=== PATIENT | male | born 1985 | race Caucasian/White ===

== ENCOUNTER 2019-12-01 12:06 | Emergency (ER) | payer BC ==
[2019-12-01] MEDS ORDERED: CYCLOBENZAPRINE 10 MG TABLET PO STA (15:18)
[2019-12-01] MEDS ORDERED: HYDROcod/ACETAM 5/325 MG TABLET PO STA (15:18)
--- NOTE | 2019-12-01 15:20 | ED Physician Documentation ---
PD HPI BACK PAIN - Stated complaint Stated Complaint: BACK PX - Chief complaint Chief Complaint: Back Pain - History obtained from History obtained from: Patient (For a little under 2 weeks he has been having low back pain, occasionally radiating into mostly the right leg. He also complains of "sore, not "painful hemorrhoids. He has been taking ibuprofen which was helpful but then stopped being helpful. No saddle anesthesia, no fevers. No IV drug use.) Review of Systems Constitutional: denies: Fever, Chills Cardiac: denies: Chest pain / pressure, Palpitations Respiratory: denies: Dyspnea, Cough GI: denies: Abdominal Pain PD PAST MEDICAL HISTORY - Past Medical History Past Medical History: No - Past Surgical History Past Surgical History: No - Present Medications Home Medications: Ambulatory Orders Medication Instructions Recorded Confirmed Cyclobenzaprine [Flexeril] 10 mg PO TID PRN #20 tablet 12/01/19 Dextrin [Fiber] 350 gm PO DAILY 12/01/19 12/01/19 Hydrocodone/Acetaminophen 1 - 2 each PO Q6H PRN #14 tablet 12/01/19 [Hydrocodon-Acetaminophen 5-325] Hydrocortisone Acetate [Anucort-Hc] 25 mg RC QID #20 supp.rect 12/01/19 Multivitamin [Multiple Vitamins] 1 tab PO DAILY 12/01/19 12/01/19 - Allergies Allergies/Adverse Reactions: Allergies Allergy/AdvReac Type Severity Reaction Status Date / Time No Known Drug Allergies Allergy Verified 12/01/19 12:16 - Social History Does the pt smoke?: No Smoking Status: Never smoker Does the pt drink ETOH?: No Does the pt have substance abuse?: No - Immunizations Immunizations are current?: Yes - POLST Patient has POLST: No PD ED PE NORMAL - Vitals Vital signs reviewed: Yes - General General: Alert and oriented X 3, No acute distress - Back Back: Other (He winces with motion but is comfortable at rest, no midline spinal tenderness. The patient has equal and normal Achilles and patellar reflexes bilaterally. Normal sensation in all areas of the legs. Patient denies saddle anesthesia. Normal strength in flexion-extension at the ankles, knees, and flexion of the hips.) - Neuro Neuro: Alert and oriented X 3, Normal speech Results - Vitals Vitals: Vital Signs - 24 hr 12/01/19 12/01/19 12:13 15:28 Temperature 36.5 C 36.5 C Heart Rate 83 82 Respiratory 18 16 Rate Blood Pressure 128/76 126/78 O2 Saturation 99 100 Oxygen O2 Source Room air PD MEDICAL DECISION MAKING - ED course ED course: This patient has seemingly uncomplicated musculoskeletal back pain. The patient has no "red flags." Specifically denies IV drug use, fevers, incontinence, saddle anesthesia. Spinal epidural abscess was considered, given that the patient has no fever, is not diabetic, has no spinal tenderness, does not use IV drugs, and has no bilateral neurologic symptoms, the diagnosis of spinal epidural abscess is considered exceedingly unlikely. Departure - Departure Disposition: Home, Self Care Clinical Impression: Back pain Qualifiers: Back pain location: low back pain Chronicity: acute Back pain laterality: midline Sciatica presence: without sciatica Qualified Code(s): M54.5 - Low back pain Condition: Good Record reviewed to determine appropriate education?: Yes Instructions: ED Neck Back Pain General Prescriptions: Cyclobenzaprine [Flexeril] 10 mg PO TID PRN #20 tablet PRN Reason: Spasms Hydrocodone/Acetaminophen [Hydrocodon-Acetaminophen 5-325] 1 - 2 each PO Q6H PRN #14 tablet PRN Reason: pain Hydrocortisone Acetate [Anucort-Hc] 25 mg RC QID #20 supp.rect Comments: Follow-up with your doctor next week as scheduled, return for new or worsening symptoms. Your physician may want to refer you out for physical therapy which I think would be appropriate. Discharge Date/Time: 12/01/19 15:28
[2019-12-01 15:29] VITALS: BP 126/78
== END 2019-12-01 15:28 | disposition home or self-care (01) ==
LOC: ED 12:06
DX: M54.5 Low back pain (principal)
CPT/HCPCS: 99283; A9270

== ENCOUNTER 2019-12-05 08:00 | Outpatient (CLI) | payer BC ==
--- NOTE | 2019-12-05 15:30 | XRAY Report ---
Reason: CHRONIC LOW BACK PAIN Procedure Date: 12/05/2019 Accession Number: [id number] / [id number] Procedure: WCP - Lumbar Spine 2 View CPT Code: Final Report FULL RESULT: PROCEDURE: Lumbar Spine 2 View INDICATIONS: CHRONIC LOW BACK PAIN TECHNIQUE: views of the lumbar spine were acquired. COMPARISON: None. FINDINGS: Bones: 5 [id number] vertebrae are present. There is normal bony alignment. No vertebral body compression fractures. No suspicious bony lesions. Mild endplate osteophyte formation throughout the mid and lower lumbar spine. Soft tissues: Overlying bowel gas pattern is normal. No suspicious soft tissue calcifications. IMPRESSION: 1. Mid/lower lumbar degenerative disc disease, which could be further assessed with MRI, if clinically indicated. 2. No acute fracture. No osseous lesion. If symptoms and/or clinical suspicion for pathology continue, further assessment with repeat plain films, or advanced imaging (e.g., CT, MRI, or bone scan) is recommended for further assessment. Reviewed by: Alexandria Case MD on 12/05/2019 3:26 PM PDT Approved by: Alexandria Case MD on 12/05/2019 3:26 PM PDT Station ID: [id number]
== END 2019-12-05 23:59 | disposition home or self-care (01) ==
LOC: DI.WCP 08:00
PROVIDERS: ATTEND Registered Nurse
DX: M51.36 Other intervertebral disc degeneration, lumbar region (principal); G89.29 Other chronic pain
CPT/HCPCS: 72100

== ENCOUNTER 2020-01-11 08:51 | Outpatient (CLI) | payer BC ==
[2020-01-11 09:02] LABS: BASOPHILS # (AUTO) 0.1 10^3/uL (0.0-0.1); BASOPHILS % (AUTO) 0.9 %; EOSINOPHILS # (AUTO) 0.3 10^3/uL (0.0-0.7); EOSINOPHILS % (AUTO) 5.3 %; HGB - HEMOGLOBIN 14.5 g/dL (14.0-18.0); LYMPHOCYTES # (AUTO) 2.1 10^3/uL (1.5-3.5); LYMPHOCYTES % (AUTO) 39.1 %; MEAN CORPUSCULAR HEMOGLOBIN 31.8 pg (27.0-31.0); MEAN CORPUSCULAR HGB CONC 34.7 g/dL (32.0-36.0); MEAN CORPUSCULAR VOLUME 91.7 fL (80.0-94.0); MEAN PLATELET VOLUME 10.2 fL (7.4-11.4); MONOCYTES # (AUTO) 0.6 10^3/uL (0.0-1.0); MONOCYTES % (AUTO) 10.4 %; NEUTROPHILS # (AUTO) 2.4 10^3/uL (1.5-6.6); NEUTROPHILS % (AUTO) 44.1 %; PLT - PLATELET COUNT 203 10^3/uL (130-450); RED BLOOD COUNT 4.56 10^6/uL (4.70-6.10); WHITE BLOOD COUNT 5.5 x10^3/uL (4.8-10.8)
[2020-01-11 09:22] LABS: ALBUMIN 5.1 g/dL (3.2-5.5); ALBUMIN/GLOBULIN RATIO 1.8 (1.0-2.2); ALKALINE PHOSPHATASE 67 IU/L (42-121); ALT ALANINE AMINOTRANSFERASE 60 IU/L (10-60); AST ASPARTATE AMINOTRANSFERASE 29 IU/L (10-42); BILIRUBIN,TOTAL 1.6 mg/dL (0.2-1.0); BUN - BLOOD UREA NITROGEN 17 mg/dL (6-20); CALCIUM 9.3 mg/dL (8.5-10.3); CARBON DIOXIDE - CO2 29 mmol/L (21-32); CHLORIDE 100 mmol/L (101-111); CHOL/HDL RATIO 5.1 (<5.0); CHOLESTEROL 192 mg/dL; CREATININE 0.9 mg/dL (0.6-1.2); GLUCOSE 99 mg/dL (70-100); HDL CHOLESTEROL 38 mg/dL; LDL CHOLESTEROL,CALCULATED 138 mg/dL; LDL/HDL RATIO 3.6 (<3.6); SODIUM 140 mmol/L (135-145); VLDL CHOLESTEROL 16 mg/dL
== END 2020-01-11 08:52 | disposition home or self-care (01) ==
LOC: LAB 08:51
PROVIDERS: ATTEND Family Medicine
DX: M54.5 Low back pain (principal); G89.29 Other chronic pain; Z82.49 Family history of ischemic heart disease and other diseases of the circulatory system; M41.86 Other forms of scoliosis, lumbar region
CPT/HCPCS: 36415; 80053; 80061; 83721; 84443; 85025

== ENCOUNTER 2020-03-28 09:51 | Outpatient (CLI) | payer BC ==
[2020-03-28 10:58] VITALS: BP 120/64
--- NOTE | 2020-03-28 10:58 | SLEEP CARE CONSULTATION ---
Information from patient questionnaire entered by Cheryle Crockett. I have reviewed and concur with the information entered by Cheryle Crockett. This document represents the service I personally performed and the decisions made by me, Aretha August ARNP. History of Present Illness Service Date and Time: 03/28/2020 0951 Reason for Visit: New patient Chief Complaint: reports: Insomnia, Unrefreshed sleep, Snoring, Excessive daytime sleepiness, Observed pauses in breathing, Fatigue, Frequent awakenings at night Date of Onset: 2008, last couple of months Usual bedtime: 1999; weekend 2199 Time it takes to fall asleep: 30-60 minutes Snores at night: Yes (sometimes) Observed to quit breathing while asleep: Yes Sleeps alone due to snoring: No Number of times waking at night: 2-4 Reasons for waking at night: reports: Gasping for air (takes a deep breath in on awakening), Bathroom, Other (deep breath in after). denies: Choking, Snoring Toss, Turn, or Twitch while sleeping: Yes Recalls having dreams: Yes Usually gets out of bed at: 0345; 0800 on weekends Feels refreshed in the morning: No Morning headache: No Sleepy or fatigued during the day: Yes Ever fallen asleep while driving: No (rare drowsy driving) Takes day naps: No Dreams during day naps: Yes Prior sleep studies: No Additional HPI information: I had the pleasure of seeing BILLY TOBIAS today regarding the possibility of him having a sleep disorder. His current complaints are observed pauses in breathing, frequent awakenings at night and fatigue. He has been trouble staying asleep and will wake up about 3.5 hours after going to sleep. He is not resting during the rest of night, because he is waking up hourly. This has been increasingly worse in the last several months. His fiance has noticed that he stop breathing for at least 5 seconds and she nudges him to get him to wake up and breathe. He does snore occasionally and thinks it is only when he is really tired and the snoring does not cause his fiance to leave their sleeping room. His father has sleep apnea and uses a CPAP machine. - Parasomnia Symptoms Ever been unable to move upon waking from sleep: No Walks in sleep: No Talks in sleep: No Ever acted out dreams in sleep: Yes (only can remember once) Ever felt weak in the knees when startled or emotional: No Bothered by creepy, crawly, restless sensations in legs: No Problems with memory or concentration: Yes (sometimes memory is bad and sometimes concentration) Subjective Initial [place] Sleepiness Scale score: 11 (in 2019) Past Medical History Past Medical History: reports: Arthritis, Arrythmia (seen when 19 or 20, but never repeated or checked out), Attention deficit, Other (degenerative disk disease, high cholesterol). denies: Hypertension, Congestive Heart Failure, Diabetes, Coronary Heart Disease, Hypothyroidism, Anemia, Anxiety, Impotence, Depression, Mood disorder, GERD Social History The patient's occupation is a [employer]. Patient is Single and lives in [place]. Have you smoked in the past 12 months: No (he vapes since quit cigarettes) Cigarettes per day (20/pack): 20 Years of smokin Quit date: 02/2018 Smoking Pack Years: 10.0 Alcohol use: Yes Alcohol amount and frequency: 1-2, 1-3 times/week Caffeine use: Yes Caffeine amount and frequency: 1 cup every other day Family History Family history of sleep disordered breathing: Yes Family Hx Sleep Apnea: Father: Snoring, Sleep apnea - Treated Allergies and Home Medications Drug allergies reviewed: Yes (no known drug allergies) Home medication list reviewed: Yes Allergy and home medication list: diclofenac 75 mg 2x a day atorvastatin 40 mg 1x a day in the evening multivitamin Review of Systems Weight gain over past 5 years: 20 Cardiovascular: reports: irregular heart rate or pulse (once in past). denies: high blood pressure, palpitations, chest pain, leg or foot swelling, have to sleep sitting up Respiratory: denies: shortness of breath, chronic cough Gastrointestinal: denies: heartburn, difficulty swallowing Urinary: reports: frequency. denies: impotence Neurological: denies: headaches, seizure, head trauma, speech dysfunction, gait or balance problems, fainting or unconsciousness Psychiatric: reports: Attention Deficit Hyperactivity. denies: anxiety, depression, mood disorder, claustrophobia Ear/Nose/Throat: reports: nasal congestion, nose bleeds (2-3 times a week), dry mouth/throat (most mornings), wisdom teeth removed. denies: sinus problems, injury to nose, tonsillectomy Endocrine: reports: sluggishness, increased urination. denies: thyroid disease Musculoskeletal: reports: joint pain, back pain, joint swelling, muscle pain or cramping, mobility problems Immunologic: denies: allergies to food or environment Physical Exam Blood Pressure: 120/64 Cuff size: regular Heart Rate: 65 O2 Saturation: 98 Height: 6 ft 1 in Weight: 175 lb Body Mass Index: 23.1 BMI Classification: Healthy weight Neck circumference: 15 (inches) HEENT: No craniofacial malformation Nostrils: patent to airflow Turbinates: normal Septum: deviated left Mouth and throat: normal Soft palate: normal Hard palate: arched Uvula: normal Uvula visualization: 100% Mallampati Class I Tongue: normal in size Tonsils: small Chin and jaw: normal size and position Neck: normal w/o lymphadenopathy or thyromegaly Heart: regular rate and rhythm Lungs: clear bilaterally Impression and Plan 1. Suspected Obstructive Sleep Apnea-Hypopnea Syndrome, as suggested by a history of loud and irregular snoring, observed cessation of breath while asleep, gasping or choking in sleep, frequent awakening during the night, unrefreshed sleep, cognitive impairment, and excessive daytime sleepiness. I reviewed with patient that a narrow oropharynx and obesity are common predisposing factors for obstructive sleep apnea-hypopnea syndrome. I recommend proceeding to polysomnography to confirm the diagnosis and to assess severity. If the patient has significant sleep disordered breathing, a manual CPAP titration study will also be performed to find the optimal treatment pressure. I informed the patient of what the sleep studies involve and after some discussion, obtained agreement to proceed. The pathophysiology of obstructive sleep apnea-hypopnea syndrome was discussed with the patient and health risks of cardiovascular and cerebrovascular disease if not treated. [employer] brochure for obstructive sleep apnea-hypopnea syndrome given and reviewed. Risks of drowsy driving discussed in detail and patient advised to avoid long distance driving and to pullman conductor at the first sign of drowsiness. Patient agreed to plan. * Schedule polysomnography +- manual CPAP titration study. * Avoid long distance driving or driving when feeling sleepy. * Avoid alcohol, sedative and muscle relaxant around bedtime. * Attempt to lose weight. * Review instructions provided by trained office staff on how to prepare for the sleep study. * Return for follow-up after sleep study completed. Visit Type: In Office Time Spent with Patient (minutes): 31 Provider Statement: I spent 100% of the Face to Face Visit with the patient with greater than 50% spent counseling the patient and coordination of care.
== END 2020-03-28 09:52 | disposition home or self-care (01) ==
LOC: SC 09:51
PROVIDERS: ATTEND Nurse Practitioner Family
DX: G47.8 Other sleep disorders (principal); R06.81 Apnea, not elsewhere classified; R06.83 Snoring; G47.10 Hypersomnia, unspecified; F17.290 Nicotine dependence, other tobacco product, uncomplicated
CPT/HCPCS: 99204; 99212

== ENCOUNTER 2020-04-05 14:42 | Outpatient (CLI) | payer BC | END 2020-04-05 14:43 | disposition home or self-care (01) | LOC: SC 14:42 | PROVIDERS: ATTEND Nurse Practitioner Family | DX: R06.81 Apnea, not elsewhere classified (principal); R06.83 Snoring; G47.10 Hypersomnia, unspecified; G47.8 Other sleep disorders | CPT/HCPCS: 95806 ==

== ENCOUNTER 2020-04-18 07:47 | Outpatient (CLI) | payer BC ==
--- NOTE | 2020-04-18 08:16 | SLEEP CARE CONSULTATION ---
Information from patient questionnaire entered by Sondra Perdomo. I have reviewed and concur with the information entered by Sondra Perdomo. This document represents the service I personally performed and the decisions made by , Aretha August ARNP. History of Present Illness Service Date and Time: 04/18/2020 0747 Initial [place] Sleepiness Scale score: 11 (in 2019) Current [place] Sleepiness Scale score: 17 Additional HPI information: BILLY TOBIAS returns for follow up and results of the recently performed home sleep study. The patient was informed of the following findings: His HST was not conclusive for significant sleep disordered breathing with an AHI of 4.2. He did not sleep on his side during the study. The study was considered fair due to loss of air flow at the end of the study. I explained the pathophysiology behind obstructive sleep apnea. Patient has light snoring. Patient counseled not drink alcohol less than 4 hours before bedtime as it can increase snoring and apnea. Patient was cautioned about risks of drowsy driving until sleepiness symptoms resolve. Sleep Study - Results Type of Sleep Study: Home sleep study Prior sleep studies: No Polysomnography/Home Sleep Study results: Physician Impression: The quality of the study is fair due to loss of air flow signal near the end of the test.. The length of the study is adequate (> 240 minutes). Please also see the tabulated and graphic data. 1. No significant sleep-disordered breathing, with an AHI of 4.2/hr and jodi SaO2 of 92%. During the study, the patient had 22 apneas (22 obstructive, 0 central, 0 mixed) and 4 hypopneas. The longest episode lasted 39.0 seconds. The patient only slept supine during this study (supine AHI was 4.3 and non-supine, 0.00). Allergies and Home Medications Drug allergies reviewed: Yes (NKDA) Home medication list reviewed: Yes (no changes) Review of Systems Review of systems same as previous: Yes (no changes) Physical Exam Heart Rate: 69 O2 Saturation: 99 Height: 6 ft 1 in Weight: 180 lb (with cowboy boots on) Body Mass Index: 23.7 BMI Classification: Healthy weight Impression and Plan 1. Suspected Obstructive Sleep Apnea-Hypopnea Syndrome, as suggested by a history of irregular snoring, observed cessation of breath while asleep, gasping or choking in sleep, frequent awakening during the night, unrefreshed sleep, and excessive daytime sleepiness. Patient completed a HST that was sub-optimal due to loss of airflow at end of study and patient did not sleep on his side. His average AHI was 4.2. I recommend proceeding to polysomnography to confirm the findings or diagnosis. I informed the patient of what the sleep studies involve and after some discussion, obtained agreement to proceed. Risks of drowsy driving discussed in detail and patient advised to avoid long distance driving and to date puller at the first sign of drowsiness. Patient agreed to plan. * Schedule in lab polysomnography +- manual CPAP titration study and return in 1-2 weeks after the study to discuss result and initiate therapy if needed. * Avoid long distance driving or driving when feeling sleepy. * Avoid alcohol, sedative and muscle relaxant around bedtime. * Review instructions provided by trained office staff on how to prepare for the sleep study. Visit Type: In Office Time Spent with Patient (minutes): 15 Provider Statement: I spent 100% of the Face to Face Visit with the patient with greater than 50% spent counseling the patient and coordination of care.
== END 2020-04-18 07:48 | disposition home or self-care (01) ==
LOC: SC 07:47
PROVIDERS: ATTEND Nurse Practitioner Family
DX: R06.83 Snoring (principal); R06.81 Apnea, not elsewhere classified; G47.8 Other sleep disorders; G47.10 Hypersomnia, unspecified
CPT/HCPCS: 99212

== ENCOUNTER 2020-05-24 19:27 | Outpatient (CLI) | payer BC | END 2020-05-24 19:28 | disposition home or self-care (01) | LOC: SC 19:27 | PROVIDERS: ATTEND Nurse Practitioner Family | DX: G47.10 Hypersomnia, unspecified (principal); G47.8 Other sleep disorders; R06.83 Snoring; R06.81 Apnea, not elsewhere classified | CPT/HCPCS: 95810 ==

== ENCOUNTER 2020-05-30 07:42 | Outpatient (CLI) | payer BC ==
--- NOTE | 2020-05-30 08:13 | SLEEP CARE CONSULTATION ---
Information from patient questionnaire entered by Sondra Perdomo. I have reviewed and concur with the information entered by Sondra Perdomo. This document represents the service I personally performed and the decisions made by , Aretha August ARNP. History of Present Illness Service Date and Time: 05/30/2020 0742 Initial [place] Sleepiness Scale score: 11 (in 2019) Current [place] Sleepiness Scale score: 14 Additional HPI information: BILLY TOBIAS returns for follow up and results of the recently performed polysomnography. The patient was informed of the following findings: No significant sleep disordered breathing with an AHI of 0.0 and jodi oxygen saturation of 93%. I explained the pathophysiology behind obstructive sleep apnea. Patient does not have sleep apnea and was advised how weight gain could increase the risk of developing sleep apnea in the future. Patient has light snoring. Snoring can be reduced by weight loss. Weight loss is best achieved with diet consult. Patient instructed to contact PCP for referral. Snoring can also be treated with an oral appliance from a dentist. Advised to check insurance coverage. In addition, an ENT evaluation can be do to see if other treatment is indicated. Patient counseled not drink alcohol less than 4 hours before bedtime as it can increase snoring and apnea. Patient was cautioned about risks of drowsy driving until sleepiness symptoms resolve. Sleep Study - Results Type of Sleep Study: Polysomnography Prior sleep studies: No Polysomnography/Home Sleep Study results: IMPRESSION: The quality of the study is good. The patient had normal sleep efficiency. The sleep architecture was normal as well. Respiratory monitoring showed no evidence of sleep disordered breathing (AHI = 0.0) or hypoxia (jodi oxygen saturation of 93%). The patient slept adequately in supine position (supine AHI = 0.0; nonsupine = 0.00). No audible snore. There was no significant periodic leg movement of sleep. Cardiac rhythm was normal sinus rhythm without significant arrhythmia. No abnormal behavior (parasomnia) observed during the night. Allergies and Home Medications Drug allergies reviewed: Yes (NKDA) Home medication list reviewed: Yes (no changes) Review of Systems Review of systems same as previous: Yes (no changes) Physical Exam Heart Rate: 68 O2 Saturation: 100 Height: 6 ft 1 in Weight: 178 lb (with boots and coat) Body Mass Index: 23.5 BMI Classification: Healthy weight Impression and Plan Snoring but no significant sleep disordered breathing. Patient advised that often weight loss when obese or overweight will reduce snoring as well as apnea risk. Patient snoring is very light and does not need intervention at this time. He was advised that he could return to office with new referral if his sleepiness worsens or symptoms change. He was given [facility] brochure on How to sleep better, reviewed with patient. * Avoid alcohol consumption near bedtime * The patient is cautioned about driving until sleepiness is completely resolved. * Return as needed. Visit Type: In Office Time Spent with Patient (minutes): 15 Provider Statement: I spent 100% of the Face to Face Visit with the patient with greater than 50% spent counseling the patient and coordination of care.
== END 2020-05-30 07:43 | disposition home or self-care (01) ==
LOC: SC 07:42
PROVIDERS: ATTEND Nurse Practitioner Family
DX: R06.83 Snoring (principal)
CPT/HCPCS: 99212; 99213

== ENCOUNTER 2022-01-29 06:48 | Outpatient (CLI) | payer BC ==
[2022-01-29 07:24] LABS: ALBUMIN 4.7 g/dL (3.2-5.5); ALKALINE PHOSPHATASE 64 IU/L (42-121); ALT ALANINE AMINOTRANSFERASE 30 IU/L (10-60); AST ASPARTATE AMINOTRANSFERASE 23 IU/L (10-42); BILIRUBIN,TOTAL 0.8 mg/dL (0.2-1.0); BUN - BLOOD UREA NITROGEN 18 mg/dL (6-20); CALCIUM 9.7 mg/dL (8.5-10.3); CARBON DIOXIDE - CO2 30 mmol/L (21-32); CHLORIDE 104 mmol/L (101-111); CHOL/HDL RATIO 2.5 (<5.0); CHOLESTEROL 103 mg/dL; CREATININE 0.8 mg/dL (0.6-1.2); GFR - MDRD 110 (>89); GLUCOSE 102 mg/dL (70-100); HDL CHOLESTEROL 42 mg/dL; LDL CHOLESTEROL,CALCULATED 46 mg/dL; LDL/HDL RATIO 1.1 (<3.6); POTASSIUM 4.3 mmol/L (3.5-5.0); SODIUM 142 mmol/L (135-145); TOTAL PROTEIN 7.1 g/dL (6.7-8.2); TRIGLYCERIDES 75 mg/dL; VLDL CHOLESTEROL 15 mg/dL
[2022-01-29 07:35] LABS: THYROID STIMULATING HORMONE 1.98 uIU/mL (0.34-5.60)
[2022-01-29 07:39] LABS: BASOPHILS # (AUTO) 0.1 10^3/uL (0.0-0.1); BASOPHILS % (AUTO) 0.8 %; EOSINOPHILS # (AUTO) 0.2 10^3/uL (0.0-0.7); EOSINOPHILS % (AUTO) 3.4 %; HCT - HEMATOCRIT 42.4 % (42.0-52.0); HGB - HEMOGLOBIN 14.6 g/dL (14.0-18.0); LYMPHOCYTES # (AUTO) 2.5 10^3/uL (1.5-3.5); LYMPHOCYTES % (AUTO) 40.7 %; MEAN CORPUSCULAR HEMOGLOBIN 30.8 pg (27.0-31.0); MEAN CORPUSCULAR HGB CONC 34.4 g/dL (32.0-36.0); MEAN CORPUSCULAR VOLUME 89.5 fL (80.0-94.0); MEAN PLATELET VOLUME 10.4 fL (7.4-11.4); MONOCYTES # (AUTO) 0.6 10^3/uL (0.0-1.0); MONOCYTES % (AUTO) 8.8 %; NEUTROPHILS # (AUTO) 2.9 10^3/uL (1.5-6.6); NEUTROPHILS % (AUTO) 46.1 %; PLT - PLATELET COUNT 210 10^3/uL (130-450); RED BLOOD COUNT 4.74 10^6/uL (4.70-6.10); RED CELL DISTRIBUTION WIDTH 11.8 % (12.0-15.0); WHITE BLOOD COUNT 6.2 x10^3/uL (4.8-10.8)
== END 2022-01-29 06:49 | disposition home or self-care (01) ==
LOC: LAB 06:48
PROVIDERS: ATTEND Family Medicine
DX: E78.5 Hyperlipidemia, unspecified (principal); M54.50 Low back pain, unspecified; G89.29 Other chronic pain; Z82.49 Family history of ischemic heart disease and other diseases of the circulatory system
CPT/HCPCS: 36415; 80053; 80061; 83721; 84443; 85025

== ENCOUNTER 2023-07-10 10:45 | Outpatient (CLI) | payer BC, OTHER ==
--- NOTE | 2023-07-10 11:47 | XRAY Report ---
PROCEDURE: Cervical Spine 2-3V INDICATIONS: NECK PAIN TECHNIQUE: 3 view(s) of the cervical spine were acquired. COMPARISON: None. FINDINGS: Bones: No fractures or dislocations to the C7-T1 level. There is mild asymmetric appearance at the C1-C2 articulation. No suspicious bony lesions. Minimal straightening of normal cervical curvature. Soft tissues: No prevertebral soft tissue swelling. IMPRESSION: Minimal straightening of normal cervical curvature. Mild asymmetric appearance at the C1-C2 articulation. However, this is suspected be positional. Howev er, if pain is present within this region or history of trauma, repeat view or CT is recommended. Reviewed by: Aubree Johnson MD on 07/10/2023 11:46 AM PST Approved by: Aubree Johnson MD on 07/10/2023 11:46 AM PST Station ID: [id number]
== END 2023-07-10 11:00 | disposition home or self-care (01) ==
LOC: DI.N 10:45
PROVIDERS: ATTEND Nurse Practitioner
DX: M54.2 Cervicalgia (principal)

== ENCOUNTER 2023-10-09 07:20 | Outpatient (CLI) | payer OTHER ==
[2023-10-09 07:30] LABS: BASOPHILS # (AUTO) 0.1 10^3/uL (0.0-0.1); BASOPHILS % (AUTO) 1.3 %; EOSINOPHILS # (AUTO) 0.2 10^3/uL (0.0-0.7); EOSINOPHILS % (AUTO) 3.1 %; HCT - HEMATOCRIT 42.9 % (42.0-52.0); HGB - HEMOGLOBIN 14.3 g/dL (14.0-18.0); LYMPHOCYTES # (AUTO) 1.5 10^3/uL (1.5-3.5); LYMPHOCYTES % (AUTO) 31.1 %; MEAN CORPUSCULAR HEMOGLOBIN 30.5 pg (27.0-31.0); MEAN CORPUSCULAR HGB CONC 33.3 g/dL (32.0-36.0); MEAN CORPUSCULAR VOLUME 91.5 fL (80.0-94.0); MEAN PLATELET VOLUME 9.7 fL (7.4-11.4); MONOCYTES # (AUTO) 0.4 10^3/uL (0.0-1.0); NEUTROPHILS # (AUTO) 2.7 10^3/uL (1.5-6.6); NEUTROPHILS % (AUTO) 55.3 %; PLT - PLATELET COUNT 219 10^3/uL (130-450); RED BLOOD COUNT 4.69 10^6/uL (4.70-6.10); RED CELL DISTRIBUTION WIDTH 12.2 % (12.0-15.0); WHITE BLOOD COUNT 4.8 x10^3/uL (4.8-10.8)
[2023-10-09 07:49] LABS: ALBUMIN 4.6 g/dL (3.2-5.5); ALBUMIN/GLOBULIN RATIO 1.6 (1.0-2.2); ALKALINE PHOSPHATASE 72 IU/L (42-121); ALT ALANINE AMINOTRANSFERASE 16 IU/L (10-60); AST ASPARTATE AMINOTRANSFERASE 19 IU/L (10-42); BILIRUBIN,TOTAL 0.8 mg/dL (0.2-1.0); BUN - BLOOD UREA NITROGEN 20 mg/dL (6-20); CALCIUM 9.9 mg/dL (8.5-10.3); CARBON DIOXIDE - CO2 30 mmol/L (21-32); CHLORIDE 105 mmol/L (101-111); CHOL/HDL RATIO 2.8 (<5.0); CHOLESTEROL 139 mg/dL; CREATININE 0.9 mg/dL (0.6-1.3); GFR - MDRD 95 (>89); GLUCOSE 99 mg/dL (74-104); HDL CHOLESTEROL 50 mg/dL; LDL CHOLESTEROL,CALCULATED 79 mg/dL; LDL/HDL RATIO 1.6 (<3.6); POTASSIUM 4.2 mmol/L (3.5-4.5); SODIUM 138 mmol/L (135-145); TOTAL PROTEIN 7.4 g/dL (6.4-8.9); TRIGLYCERIDES 51 mg/dL (48-352); VLDL CHOLESTEROL 10 mg/dL
[2023-10-09 08:00] LABS: THYROID STIMULATING HORMONE 1.75 uIU/mL (0.34-5.60)
== END 2023-10-09 07:21 | disposition home or self-care (01) ==
LOC: LAB 07:20
PROVIDERS: ATTEND Family Medicine
DX: E78.5 Hyperlipidemia, unspecified (principal); M41.9 Scoliosis, unspecified
CPT/HCPCS: 36415; 80053; 80061; 83721; 84443; 85025